=== PATIENT | male | born 1995 | race American Indian/Alaskan Native ===

== ENCOUNTER 2018-10-30 23:50 | Inpatient (IN) | payer SELFPAY ==
[2018-10-31 00:43] LABS: Hematocrit 45.4 % (35.5-45.6); Hemoglobin 15.7 gm/dl (11.8-15.2); Mean Corpuscular HGB Conc 35 % (32-34); Mean Corpuscular Volume 88 fl (84-94); Platelet Count 256 K/mm3 (140-440); Red Blood Count 5.14 M/mm3 (3.65-5.03); Red Cell Distribution Width 14.6 % (13.2-15.2)
[2018-10-31] MEDS ORDERED: ATIVAN IM ONE (00:47)
[2018-10-31 01:08] LABS: Benzodiazepines Screen,Urine PRESUMPTIVE NEGATIVE; Cannabinoid Screen,Urine PRESUMPTIVE NEGATIVE; Cocaine Screen,Urine PRESUMPTIVE NEGATIVE; Methadone Screen,Urine PRESUMPTIVE NEGATIVE; Opiate Screen,Urine PRESUMPTIVE NEGATIVE
[2018-10-31 01:09] LABS: Bilirubin,Urine NEG (Negative); Blood,Urine MOD (Negative); Color,Urine Amber (Yellow); Hyaline Casts,Urine 34 /LPF; Mucus,Urine 3+ /HPF; Sperm,Urine FEW /HPF (NP); Urobilinogen,Urine < 2.0 mg/dL (<2.0)
--- NOTE | 2018-10-31 01:20 | Cat Scan Report ---
PROCEDURE: CT HEAD/BRAIN WO CON TECHNIQUE: Routine axial imaging was obtained of the brain without IV contrast. HISTORY: fall, trauma COMPARISONS: None FINDINGS: There is no evidence of acute stroke or hemorrhage. The ventricular system is appropriate in size and is symmetric. The sinuses reveal a 2.5 cm mucous retention cyst/polyp in the right maxillary sinus. The mastoid air cells are well pneumatized. The calvarium appears intact. IMPRESSION: No acute intracranial process. Mucous retention cyst/polyp in the right maxillary sinus.. This document is electronically signed by Cruz Borjas MD., October 31 2018 01:18:18 AM ET
--- NOTE | 2018-10-31 01:24 | Cat Scan Report ---
PROCEDURE: CT FACIAL BONES WO CON TECHNIQUE: Routine axial imaging was obtained of the facial bones without contrast with sagittal and coronal reconstructions. HISTORY: fall, trauma COMPARISONS: None FINDINGS: The orbital rims and floors appear intact. The nasal bones and zygomatic arches appear intact. The ma ndible shows no evidence of acute injury. The sinuses reveal polyps/mucous retention cyst in both max illary sinuses measuring up to 2.5 cm in diameter on the right side. The surrounding soft tissues are unremarkable. IMPRESSION: No evidence of acute facial bone fracture.. Mucous retention cysts/polyps in both maxillary sinuses. This document is electronically signed by Cruz Borjas MD., October 31 2018 01:22:04 AM ET
[2018-10-31 01:27] LABS: Amphetamine Screen,Urine PRESUMPTIVE POSITIVE
[2018-10-31 01:56] LABS: BUN/Creatinine Ratio 16; Blood Urea Nitrogen 23 mg/dL (9-20); Calcium 9.5 mg/dL (8.4-10.2); Hemolysis Index 36
[2018-10-31] MEDS ORDERED: K-DUR PO ONE (02:03)
[2018-10-31] MEDS ORDERED: POTASSIUM CHLORIDE PO ONE (02:15)
[2018-10-31] MEDS ORDERED: NACL 0.9% 1000 ML 1,000 ML IV ONE ×2 (02:19→04:41)
--- NOTE | 2018-10-31 02:33 | Emergency Department Report ---
ED General Adult HPI - General Chief complaint: Medical Clearance Stated complaint: MH/MED REFILL Time Seen by Provider: 10/31/18 00:29 Source: patient Mode of arrival: Ambulatory Limitations: No Limitations - History of Present Illness Initial comments: 23-year-old male brought to ED by policeman. Patient was found in someone's yard looking for a friend who was not there. Patient had groceries with him. Patient admits to taking and what he thinks was a bar Xanax [employer]. Patient also reports methamphetamine use as well. States he fell earlier today, has swelling to the right face. Patient denies SI, HI, or hallucinations. -: This evening Severity scale (0 -10): 0 Associated Symptoms: confusion Treatments Prior to Arrival: none - Related Data Allergies Allergy/AdvReac Type Severity Reaction Status Date / Time ibuprofen [From Motrin] Allergy Vomiting Verified 10/31/18 00:03 ED Review of Systems ROS: Stated complaint: MH/MED REFILL Other details as noted in HPI Comment: All other systems reviewed and negative Cardiovascular: denies: chest pain Gastrointestinal: denies: nausea, vomiting Neurological: denies: headache Psychiatric: denies: auditory hallucinations, visual hallucinations, homicidal thoughts, suicidal thoughts ED Past Medical Hx - Past Medical History Previous Medical History?: Yes Hx Psychiatric Treatment: Yes (bipolar anxiety) - Surgical History Past Surgical History?: No - Social History Smoking Status: Current Every Day Smoker Substance Use Type: Alcohol, Marijuana, Other ED Physical Exam - General Limitations: No Limitations General appearance: alert, in no apparent distress - Head Head exam: Present: atraumatic, normocephalic - Eye Eye exam: Present: normal appearance - ENT ENT exam: Present: other (swelling to right jaw and lower lip) - Neck Neck exam: Present: normal inspection, full ROM. Absent: tenderness - Respiratory Respiratory exam: Present: normal lung sounds bilaterally. Absent: respiratory distress - Cardiovascular Cardiovascular Exam: Present: normal rhythm, tachycardia - GI/Abdominal GI/Abdominal exam: Present: soft. Absent: distended, tenderness - Extremities Exam Extremities exam: Present: other (abrasions to palms of hands) - Neurological Exam Neurological exam: Present: alert, oriented X3 - Psychiatric Psychiatric exam: Present: normal affect, normal mood - Skin Skin exam: Present: warm, dry, intact, normal color ED Course Vital Signs 10/30/18 10/31/18 10/31/18 23:53 02:13 04:37 Temperature 97.6 F 98.2 F 99.2 F Pulse Rate 127 H 125 H 125 H Respiratory 18 12 20 Rate Blood Pressure 148/76 Blood Pressure 139/61 148/84 [Left] O2 Sat by Pulse 99 99 99 Oximetry ED Medical Decision Making - Lab Data Result diagrams: 10/31/18 00:07 10/31/18 00:07 - EKG Data -: EKG Interpreted by Me EKG shows normal: sinus rhythm, axis, intervals, QRS complexes, ST-T waves Rate: tachycardia - EKG Data Interpretation: no acute changes - Radiology Data Radiology results: report reviewed, image reviewed - Medical Decision Making 23-year-old male initially brought in by police because he was sewn and someone else's yard looking for a friend, however friend did not live in that location. Patient admits to using methamphetamine and taking an unknown pill tonight as well. Patient has swelling to his face from a fall earlier in the evening. Patient initially tachycardic and anxious. This was attributed to his amphetamine use, as drug screen is positive for meth. IV fluids were given along with a dose of Ativan. Patient also had elevated white count of 25, this is thought to be possibly due to the trauma that he suffered. However, differential resulted and shows the patient does have a bandemia, patient then developed low-grade temperature as well. Due to this and continued tachycardia, blood cultures, urine culture were ordered, patient given a dose of antibiotics as well. CT head and face are negative for any acute abnormality. Chest x-ray normal. UA normal as well. Will admit to hospitalist for further workup. Delay in administration of antibiotics as patient's initial findings were attributed to his trauma and drug use. - Differential Diagnosis intracranial trauma, facial fracture, infection, drug abuse Critical care attestation.: If time is entered above; I have spent that time in minutes in the direct care of this critically ill patient, excluding procedure time. ED Disposition Clinical Impression: Drug abuse, Facial contusion, SIRS (systemic inflammatory response syndrome) Disposition: OP ADMIT IP TO THIS HOSP Is pt being admited?: Yes Condition: Stable Referrals: LUIS AUGUSTINE MD [Primary Care Provider] - 3-5 Days Time of Disposition: 05:27
[2018-10-31 03:30] LABS: Anisocytosis 1+; Band Neutrophils # (Manual) 7.3 K/mm3; Basophils % (Manual) 0 % (0.0-1.8); Eosinophils % (Manual) 0 % (0.0-4.3); Hypochromasia 1+; Total Cells Counted 100
[2018-10-31] MEDS ORDERED: ZOSYN/NS 4.5GM/100ML 4.5 GM/100 ML VIAL IV ONE (04:41)
--- NOTE | 2018-10-31 05:01 | XRay Report ---
PROCEDURE: XR CHEST 1V AP TECHNIQUE: A portable supine view of the chest was cemented. HISTORY: fever COMPARISONS: None FINDINGS: The heart size and mediastinum appear normal. The lungs are clear. The bones and soft tissues appear well-maintained. IMPRESSION: Normal chest. This document is electronically signed by Cruz Borjas MD., October 31 2018 04:58:22 AM ET
[2018-10-31 06:52] VITALS: BP 145/87
--- NOTE | 2018-10-31 12:05 | Event Note ---
Date: 10/31/18 Patient Eloped from the ED prior to being seen by Hospitalist service.
== END 2018-10-31 09:07 | disposition left against medical advice (07) | DRG 605 ==
LOC: ED 23:50 → 4A 10-31 06:03
PROVIDERS: ADMIT Internal Medicine; ATTEND Internal Medicine
DX: S00.83XA Contusion of other part of head, initial encounter (principal); R65.10 Systemic inflammatory response syndrome (SIRS) of non-infectious origin without acute organ dysfunction; F31.9 Bipolar disorder, unspecified; F41.9 Anxiety disorder, unspecified; F17.200 Nicotine dependence, unspecified, uncomplicated; F12.10 Cannabis abuse, uncomplicated; X58.XXXA Exposure to other specified factors, initial encounter; Z88.6 Allergy status to analgesic agent; Y93.89 Activity, other specified; Y92.098 Other place in other non-institutional residence as the place of occurrence of the external cause; Y99.8 Other external cause status
CPT/HCPCS: 36415; 70450; 70486; 71045; 80048; 80307; 80320; 81001; 82140; 85007; 85025; 87040; 87086; 87116; 87400; 87430; 93005; 93010; 96361; 96365; 96366; G0378; G0480; J2060; J2543; J7030

== ENCOUNTER 2018-10-31 18:03 | Emergency (ER) | payer SELFPAY ==
--- NOTE | 2018-10-31 18:11 | Emergency Department Report ---
Blank Doc - Documentation Documentation: This is a 23 y.o. male that presents to ED paranoid. Patient reports hearing voices. He was seen in this ER earlier with similar symptoms. He also reports falling, swelling to right hand, and multiple bruising to face, BLE, and BUE. He left prior to treatment. Denies SI/HI. Labs and CXR ordered this morning. Main ED for further evaluation.
[2018-10-31] MEDS ORDERED: NACL 0.9% 1000 ML 1,000 ML IV ONE ×2 (21:13→22:13)
--- NOTE | 2018-10-31 21:19 | Emergency Department Report ---
ED Psych HPI - General Chief Complaint: Psych Stated Complaint: PSYCH Time Seen by Provider: 10/31/18 18:10 Source: patient Mode of arrival: Ambulatory - History of Present Illness Initial Comments: Patient is 23 years old male with unknown previous medical or psychiatric history. Patient presented to the ER for the second time today. Patient was seen earlier today and found to have a hypokalemia but patient eloped before treatment. Patient now presented to the emergency room stating that the police called him and told him that he has a court order to come to the ER for a 3 day hold. Patient is in obvious acute psychosis with obvious visual hallucination and auditory hallucination. Patient denied any suicidal or homicidal ideation. Patient [place] [id number] this morning and a potassium of 2.8. His urine drug screen is positive for methamphetamine. MD Complaint: altered mental status -: unknown Associated Psychiatric Symptoms: racing thoughts, auditory hallucinations, visual hallucinations, delusions History of same: Yes Quality: constant Context: recent drug abuse - Related Data Home Medications Medication Instructions Recorded Confirmed Last Taken No Known Home Medications [No 10/31/18 10/31/18 Unknown Reported Home Medications] Allergies Allergy/AdvReac Type Severity Reaction Status Date / Time ibuprofen [From Motrin] Allergy Vomiting Verified 10/31/18 00:03 ED Review of Systems ROS: Stated complaint: PSYCH Other details as noted in HPI Comment: All other systems reviewed and negative Constitutional: denies: chills, fever Respiratory: denies: cough Cardiovascular: palpitations. denies: chest pain Gastrointestinal: denies: abdominal pain, nausea, vomiting, diarrhea, constipation, hematemesis, melena, hematochezia Genitourinary: denies: urgency, dysuria Neurological: denies: headache, weakness, numbness, paresthesias, confusion, abnormal gait ED Past Medical Hx - Past Medical History Previous Medical History?: Yes Hx Psychiatric Treatment: Yes (bipolar anxiety) - Surgical History Past Surgical History?: No - Social History Smoking Status: Current Every Day Smoker Substance Use Type: None - Medications Home Medications: Home Medications Medication Instructions Recorded Confirmed Last Taken Type No Known Home Medications [No 10/31/18 10/31/18 Unknown History Reported Home Medications] ED Physical Exam - General Limitations: No Limitations General appearance: alert, in no apparent distress - Head Head exam: Present: atraumatic, normocephalic, normal inspection - Eye Eye exam: Present: normal appearance, PERRL - ENT ENT exam: Present: normal exam, normal orophraynx, mucous membranes moist - Neck Neck exam: Present: normal inspection, full ROM. Absent: tenderness, meningismus, lymphadenopathy, thyromegaly - Respiratory Respiratory exam: Present: normal lung sounds bilaterally - Cardiovascular Cardiovascular Exam: Present: regular rate, normal rhythm, normal heart sounds - GI/Abdominal GI/Abdominal exam: Present: soft, normal bowel sounds. Absent: distended, tenderness, guarding, rebound, rigid, organomegaly, mass, bruit, hernia - Extremities Exam Extremities exam: Present: normal inspection, full ROM, normal capillary refill - Back Exam Back exam: Present: normal inspection, full ROM. Absent: tenderness, CVA tenderness (R), CVA tenderness (L), muscle spasm, paraspinal tenderness - Neurological Exam Neurological exam: Present: alert, oriented X3, CN II-XII intact, normal gait, reflexes normal - Psychiatric Psychiatric exam: Present: anxious, manic. Absent: homicidal ideation, suicidal ideation - Skin Skin exam: Present: warm, intact, normal color ED Course Vital Signs 10/31/18 10/31/18 10/31/18 18:11 21:24 21:30 Temperature 98.8 F Pulse Rate 125 H 118 H Respiratory 20 26 H Rate Blood Pressure 169/102 169/94 O2 Sat by Pulse 98 98 100 Oximetry 10/31/18 10/31/18 10/31/18 21:37 21:46 22:00 Temperature Pulse Rate 133 H 121 H Respiratory 20 26 H 29 H Rate Blood Pressure 169/94 169/94 O2 Sat by Pulse 100 99 98 Oximetry 10/31/18 10/31/18 22:16 22:50 Temperature Pulse Rate 129 H Respiratory 22 Rate Blood Pressure 169/94 169/94 O2 Sat by Pulse 99 Oximetry ED Medical Decision Making - Lab Data Result diagrams: 10/31/18 21:38 10/31/18 21:38 - Medical Decision Making Patient is 23 years old male with unknown previous medical or psychiatric history. Patient presented to the ER for the second time today. Patient was seen earlier today and found to have a hypokalemia but patient eloped before treatment. Patient now presented to the emergency room stating that the police called him and told him that he has a court order to come to the ER for a 3 day hold. Patient is in obvious acute psychosis with obvious visual hallucination and auditory hallucination. Patient denied any suicidal or homicidal ideation. Patient [place] [id number] this morning and a potassium of 2.8. His urine drug screen is positive for methamphetamine. Repeated labs are reviewed. Show potassium of 4.1 and his white blood cells count came down from 25,000 to 12,000. Patient urine drug screen is positive for methamphetamine. Patient is medically clear for psychiatric evaluation and possible placement. Critical care attestation.: If time is entered above; I have spent that time in minutes in the direct care of this critically ill patient, excluding procedure time. ED Disposition Clinical Impression: Drug abuse, Acute psychosis, Methamphetamine abuse Disposition: [id number]/TX-65 PSY HOSP/PSY UNIT Is pt being admited?: No Condition: Stable Referrals: LUIS AUGUSTINE MD [Primary Care Provider] - 3-5 Days
[2018-10-31 21:51] LABS: Basophils # (Auto) 0.1 K/mm3 (0.0-0.1); Basophils % (Auto) 0.6 % (0.0-1.8); Eosinophils % (Auto) 0.2 % (0.0-4.3); Hematocrit 37.2 % (35.5-45.6); Lymphocytes # (Auto) 2.5 K/mm3 (1.2-5.4); Lymphocytes % (Auto) 19.9 % (13.4-35.0); Mean Corpuscular HGB Conc 35 % (32-34); Mean Corpuscular Volume 88 fl (84-94); Monocytes # (Auto) 1.7 K/mm3 (0.0-0.8); Monocytes % (Auto) 13.5 % (0.0-7.3); Platelet Count 206 K/mm3 (140-440); Red Blood Count 4.25 M/mm3 (3.65-5.03); Red Cell Distribution Width 14.2 % (13.2-15.2)
[2018-10-31 22:05] LABS: BUN/Creatinine Ratio 23; Blood Urea Nitrogen 21 mg/dL (9-20); Calcium 8.3 mg/dL (8.4-10.2); Hemolysis Index 1
[2018-10-31 22:57] LABS: Bilirubin,Urine NEG (Negative); Blood,Urine NEG (Negative); Color,Urine Yellow (Yellow); Mucus,Urine 1+ /HPF; Protein,Urine <15 mg/dL mg/dL (Negative); Urobilinogen,Urine < 2.0 mg/dL (<2.0)
[2018-10-31 23:02] LABS: Benzodiazepines Screen,Urine PRESUMPTIVE NEGATIVE; Cannabinoid Screen,Urine PRESUMPTIVE NEGATIVE; Cocaine Screen,Urine PRESUMPTIVE NEGATIVE; Methadone Screen,Urine PRESUMPTIVE NEGATIVE; Opiate Screen,Urine PRESUMPTIVE NEGATIVE
[2018-10-31 23:14] LABS: Amphetamine Screen,Urine PRESUMPTIVE POSITIVE
[2018-11-01] MEDS ORDERED: GEODON IM ONE ×2 (01:29→01:32)
[2018-11-01] MEDS ORDERED: VISTARIL PO PRN (14:03)
--- NOTE | 2018-11-01 14:36 | Consultation ---
History of Present Illness - Reason for Consult Consult date: 11/01/18 Reason for consult: Initial Psychiatric Evaluation - Chief Complaint Chief complaint: " Hearing voices and seeing things" - History of Present Psychiatric Illness Patient is a 23 year old male who presents to the emergency room with auditory and visual hallucinations. Per record patient presented to the ER for the second time on 10/31/18. Patient was seen earlier today and found to have a hypokalemia but patient eloped before treatment. His urine drug screen is positive for amphetamines. Today the patient is cooperative but anxious during t he assessment. He has a PPHx of Bipolar and Anxiety Disorder. Patient has been noncompliant with medication for approximately 3 weeks. Per patient he takes Klonopin and [place]. He states, " I hear unfamiliar voices that don't make sense. I see evil stuff that doesn't make sense." Also, patient endorses paranoid delusions. Per patient he hid in the bathroom at [facility] for hours. He denies SI/HI's. Patient is requesting benzodiazepines such as Klonopin and Ativan. Current Psychiatric Medications: Klonopin and [place]- dosages unknown. Past Psychiatric History: Bipolar Disorder ( 2014), Anxiety Disorder ( Age 15); 2 previous inpatient psychiatric hospitalizations; no outpatient psychiatrist; no previous suicide attempts Past Medication Trials: Seroquel ( somewhat effective), Celexa (ineffective) History of Drug/Alcohol Abuse: Patient denies. UDS positive for methamphetamine. " I tried it once" History of Trauma/Abuse: Patient denies sexual, physical, and mental abuse. Social History: High School Diploma; employed- [employer]; no children; single; no pending legal issues; limited support system. Family History of Psychiatric Illness/ Substance Abuse: Uncle- Schizoaffective Disorder Medications and Allergies Allergies Allergy/AdvReac Type Severity Reaction Status Date / Time ibuprofen [From Motrin] Allergy Vomiting Verified 10/31/18 00:03 Home Medications Medication Instructions Recorded Confirmed Last Taken Type No Known Home Medications [No 10/31/18 10/31/18 Unknown History Reported Home Medications] Active Meds: Active Medications Hydroxyzine Pamoate (Vistaril) 50 mg PO QID PRN PRN Reason: Anxiety Neomycin/Polymyxin/Bacitracin (Triple Antibiotic) 1 applic TP TID [facility] Mental Status Exam - Vital signs Last Vital Signs Temp 98.6 F 11/01/18 13:39 Pulse 101 H 11/01/18 13:39 Resp 18 11/01/18 13:39 BP 130/83 11/01/18 13:39 Pulse Ox 99 11/01/18 13:39 - Exam Narrative exam: Mental Status Exam Appearance: calm, cooperative Behavior: regular eye contact Speech: regular rate and loud tone Mood: "Anxious" Affect: congruent to mood Thought Process: circumstantial Thought Content: denies SI/HI's : + AVH's and paranoid delusions Motor Activity: sitting up in the bed Cognition: A/O x3 Insight: variable Judgment: variable Results Result Diagrams: 10/31/18 21:38 10/31/18 21:38 Abnormal lab results 10/31/18 10/31/18 10/31/18 Range/Units 21:38 21:38 21:38 WBC 12.4 H (4.5-11.0) K/mm3 MCHC 35 H (32-34) % [place] % (Auto) 13.5 H (0.0-7.3) % [place] # 1.7 H (0.0-0.8) K/mm3 Seg Neutrophils # 8.1 H (1.8-7.7) K/mm3 BUN 21 H (9-20) mg/dL Calcium 8.3 L (8.4-10.2) mg/dL Salicylates < 0.3 L (2.8-20.0) mg/dL Acetaminophen (10.0-30.0) ug/mL 10/31/18 Range/Units 21:38 WBC (4.5-11.0) K/mm3 MCHC (32-34) % [place] % (Auto) (0.0-7.3) % [place] # (0.0-0.8) K/mm3 Seg Neutrophils # (1.8-7.7) K/mm3 BUN (9-20) mg/dL Calcium (8.4-10.2) mg/dL Salicylates (2.8-20.0) mg/dL Acetaminophen < 5.0 L (10.0-30.0) ug/mL All other labs normal. Assessment and Plan Assessment and plan: Impression: PPHx Bipolar Disorder and Anxiety Disorder . Drug Induced Psychosis . Today the patient is cooperative but anxious during the assessment. He endorses psychosis. He denies SI/HI's. UDS positive for amphetamines. DDx: r/o schizoaffective disorder, bipolar type. Medical: WBC 12.4 Recommendation/Plan: 1. Continue 1013. 2. Attempt to gain collateral. 3. Start Seroquel 100mg po QHS mood/psychosis. Continue Vistaril 50mg po QID PRN anxiety. Discussed possible metabolic side effects of Seroquel and anticholingeric side effects of Vistaril. Patient verbalizes understanding. Disposition: Will refer to inpatient psychiatric services. Will staff with Dr. Sia Saldana.
[2018-11-01] MEDS: TRIPLE ANTIBIOTIC TP SCH ×2 (16:00→20:12)
[2018-11-01] MEDS: HABITROL TD SCH (20:13)
[2018-11-02] MEDS: TRIPLE ANTIBIOTIC TP SCH ×3 (08:17→20:15)
[2018-11-02] MEDS: HABITROL TD SCH (10:00)
--- NOTE | 2018-11-02 13:37 | Progress Note ---
Subjective - Reason for Consult Consult date: 11/02/18 Reason for consult: Psychiatry Follow-up - Chief Complaint Chief complaint: "I'm here" 23 year old male who presents to the emergency room with auditory and visual hallucinations. Today the patient is vague during the assessment. He was asked several times about his actions prior to coming to the ER. He stated that it's his "anxiety." The patient is adamant that his anxiety is the cause of his ER visit. No gestures if RODRÍGUEZ/HI's The patient will not confirm or deny AH's. At this time, the patient is a poor historian. Mental Status Exam - Vital signs Last Vital Signs Temp 98.5 F 11/02/18 07:30 Pulse 101 H 11/02/18 07:30 Resp 18 11/02/18 12:16 BP 149/101 11/02/18 07:30 Pulse Ox 97 11/02/18 12:16 - Exam Narrative exam: MSE: Appearance: in hospital attire Behavior: regular eye contact Speech: regular rate and loud tone Mood: "anxious" Affect: constricted Thought Process: unable to assess Thought Content: denies SI/HI's and VH's Motor Activity: sitting up in the bed Cognition: A/O x3 Insight: limited Judgment: poor Assessment and Plan Impression: Unspecified Psychosis. Unspecified Anxiety DO. Substance Use DO (amphetamines). Today the patient is vague during the assessment. DDx: Substance Induced Psychosis Recommendation/Plan: Continue 1013, Seroquel 100 mg PO HS for psychosis, and start Buspar 7.5 mg PO BID for anxiety. Discussed possible metabolic side effects of Seroque with the patient. Dispo:: The patient was referred to inpatient psy services . Staffed with Dr. Minor.
[2018-11-02] MEDS: BUSPAR PO SCH ×2 (15:43→23:13)
[2018-11-03] MEDS: TRIPLE ANTIBIOTIC TP SCH ×3 (08:30→20:58)
--- NOTE | 2018-11-03 09:10 | Progress Note ---
Subjective - Reason for Consult Consult date: 11/03/18 Reason for consult: Psychiatry Follow-up - Chief Complaint Chief complaint: "Hello" 23 year old male who presents to the emergency room with auditory and visual hallucinations. Today the patient is calm and cooperative during the assessment. He is more lucid today. He stated that he has a long hx of substance abuse and anxiety. He stated that he would like "help" to stay off "drugs." He denies SI/HI's and AVH's. He denies any side effects of his medications. Mental Status Exam - Vital signs Last Vital Signs Temp 98.4 F 11/03/18 01:32 Pulse 90 11/03/18 01:32 Resp 16 11/03/18 01:32 BP 143/99 11/03/18 01:32 Pulse Ox 99 11/03/18 01:32 - Exam Narrative exam: MSE: Appearance: calm, cooperative Behavior: poor eye contact Speech: regular rate and loud tone Mood: "okay" Affect: congruent to mood Thought Process: circumstantial Thought Content: denies SI/HI's and AVH's Motor Activity: sitting up in the bed Cognition: A/O x3 Insight: variable to fair Judgment: variable to fair Assessment and Plan Impression: Unspecified Psychosis. Unspecified Anxiety DO. Substance Use DO (amphetamines). Today the patient is calm and cooperative during the assessment. DDx: Substance Induced Psychosis Recommendation/Plan: Reevaluate 1013 in 24 hours. Continue Seroquel 100 mg PO HS for psychosis and Buspar 7.5 mg PO BID for anxiety. Discussed possible metabolic side effects of Seroquel with the patient. Dispo:: If the patient's 1013 is rescinded in 24 hours, he can follow up with [facility] . Will staff with Dr. Minor.
[2018-11-03] MEDS: BUSPAR PO SCH ×2 (10:52→21:59)
[2018-11-03] MEDS: HABITROL TD SCH (10:52)
[2018-11-03] MEDS: NORVASC PO SCH (10:53)
[2018-11-04] MEDS: TRIPLE ANTIBIOTIC TP SCH ×3 (08:30→21:38)
[2018-11-04] MEDS: BUSPAR PO SCH ×2 (10:21→21:38)
[2018-11-04] MEDS: NORVASC PO SCH (11:22)
[2018-11-04] MEDS: HABITROL TD SCH (14:55)
[2018-11-04] MEDS ORDERED: TRIPLE ANTIBIOTIC TP ONE (21:26)
--- NOTE | 2018-11-04 22:01 | Progress Note ---
Subjective - Reason for Consult Consult date: 11/04/18 Reason for consult: follow up - Chief Complaint Chief complaint: "I was self medicating." 23 year old male who presents to the emergency room with auditory and visual hallucinations. Today the patient is calm and cooperative during the assessment. He stated that he has a long hx of substance abuse and anxiety. He is aware of the detrimental effects of drugs on his mental health and circu mstances. He denies SI/HI's and AVH's. He denies any side effects of his medications. Mental Status Exam - Exam Narrative exam: MSE: Appearance: calm, cooperative Behavior: appropriate Speech: regular rate Mood: "okay" Affect: congruent to mood Thought Process: logical/linear Thought Content: denies SI/HI's and AVH's Motor Activity: ambulatory, no abnormalities Cognition: A/O x4 Insight: fair Judgment: fair Assessment and Plan Impression: Substance induced psychosis. Unspecified Anxiety DO. Substance Use DO (amphetamines). Today the patient is calm and cooperative during the assessment and does not display signs of psychosis. Recommendation/Plan: Reevaluate 1013 in 24 hours. Continue Seroquel 100 mg PO HS for psychosis and Buspar 7.5 mg PO BID for anxiety. Discussed possible metabolic side effects of Seroquel with the patient. Dispo:: If the patient's 1013 is rescinded in 24 hours, he can follow up with [facility]. . staffed with Dr. Saldana Mental Status Exam - Vital signs Last Vital Signs Temp 97.9 F 11/04/18 20:00 Pulse 97 H 11/04/18 20:00 Resp 18 11/04/18 20:00 BP 143/103 11/04/18 20:00 Pulse Ox 99 11/04/18 20:00
[2018-11-05] MEDS: TRIPLE ANTIBIOTIC TP SCH ×2 (10:44→14:33)
[2018-11-05] MEDS: BUSPAR PO SCH (11:00)
[2018-11-05] MEDS: NORVASC PO SCH (11:29)
[2018-11-05 15:18] VITALS: BP 145/88
[2018-11-05] MEDS ORDERED: HABITROL TD SCH (16:00)
--- NOTE | 2018-11-05 16:35 | Progress Note ---
Subjective - Reason for Consult Reason for consult: AH - Chief Complaint Chief complaint: On exam today, patient notes that he is no longer having auditory hallucinations. Patient notes that he was having psychosis in the context of acute stressors as well as comorbid substance abuse. Patient notes that he is going to refrain from persistent substance abuse and will follow-up with the [facility]. Additionally, patient notes will take his BuSpar and Seroquel as scheduled. General Appearance: hospital gown, no acute distress Sensorium/Consciousness: alert and responding to external stimuli; clear Orientation: person, place, time and situation Eye Contact: limited Attitude / Behavior: guarded Psychomotor & Musculoskeletal Activity: WNL Mood: ok Affect: constricted, limited range Speech / Language: fluent, with normal rate/rhythm/tone Thought Processes: organized, logical, linear Thought Content: no SI/HI Perception: no AVH Insight: limited Judgement: limitied Capacity for ADLs: independeent Assessment and Plan Impression: Substance induced psychosis. Unspecified Anxiety DO. Substance Use DO (amphetamines). Today the patient is calm and cooperative during the assessment and does not display signs of psychosis. Recommendation/Plan: Rescind 1013 today Follow up with [facility] Medications: Seroquel 100 mg po qhs; Buspar 7.5 mg BID Mental Status Exam - Vital signs Last Vital Signs Temp 98.8 F 11/05/18 15:00 Pulse 101 H 11/05/18 15:00 Resp 16 11/05/18 15:00 BP 145/88 11/05/18 15:00 Pulse Ox 98 11/05/18 15:00
== END 2018-11-05 17:52 ==
LOC: ED 18:03 → EEVIPCON 18:03 → ED 11-05 17:52
DX: F19.159 Other psychoactive substance abuse with psychoactive substance-induced psychotic disorder, unspecified (principal); F15.10 Other stimulant abuse, uncomplicated; F31.9 Bipolar disorder, unspecified; F17.200 Nicotine dependence, unspecified, uncomplicated; Z88.6 Allergy status to analgesic agent
CPT/HCPCS: 36415; 80048; 80307; 81001; 85025; 96360; 96372; 99284; G0480; J3486; J7030; 80320; A6250; Q0177